=== PATIENT | female | born 1980 | race Caucasian/White ===

== ENCOUNTER 2020-08-07 02:18 | Emergency (ER) | payer OTHER ==
[~2020-08-07] VITALS: Ht 160 cm; Wt 54.4 kg
[~2020-08-07 02:18] MED LIST: ADVIL FLU & BO1 EACH; BIRTH CONTROL; CARISOPRODOL 3350 MG PO; FOLIC ACID; HYDROCODON-ACE1 EAC7 PO; IBUPROFEN 600600 M1 PO; MACROBID 100 M100 M1 PO; PERCOCET 5-3251 EACH PO; PRENATAL COMPL1 EACH; PROMETHAZINE12.5 M1 PO; PYRIDIUM200 MG PO
[2020-08-07] MEDS ORDERED: CELEXA10 MG PO (02:31)
[2020-08-07 02:32] LABS: URINE BILIRUBIN NEGATIVE (Negative); URINE BLOOD 3+ (Negative); URINE CLARITY CLOUDY; URINE COLOR YELLOW; URINE GLUCOSE-RANDOM NEGATIVE (Negative); URINE KETONES NEGATIVE (Negative); URINE PROTEIN 2+ (Negative); URINE SPECIFIC GRAVITY >= 1.030 (1.005-1.030); URINE UROBILINOGEN 0.2 E.U./dl (0.2-1.0)
[2020-08-07 02:33] LABS: URINE LEUKOCYTES-REFLEX 3+ (Negative); URINE NITRITE-REFLEX POSITIVE (Negative)
[2020-08-07 02:39] LABS: SQUAMOUS >10 Many /LPF (0-3); URINE RBC >20 Many /HPF (0-2); URINE WBC-REFLEX >25 Many /HPF (0-5)
[2020-08-07 02:40] LABS: BACTERIA-REFLEX 1-9 Few /HPF (None Seen); CASTS None Seen /LPF (None Seen); CRYSTALS None Seen /LPF (None Seen); MUCUS None Seen strn/LPF (None Seen); WBC CLUMPS Few (None Seen)
[2020-08-07] MEDS ORDERED: MACROBID 100 M100 M1 PO (02:52)
[2020-08-07] MEDS ORDERED: PYRIDIUM200 MG PO (02:52)
[2020-08-07 03:01] VITALS: BP 111/56
== END 2020-08-07 03:02 | disposition home or self-care (01) ==
LOC: M.ERS 02:18
PROVIDERS: Emergency Medicine
DX: N39.0 Urinary tract infection, site not specified (principal); F12.90 Cannabis use, unspecified, uncomplicated; G43.909 Migraine, unspecified, not intractable, without status migrainosus; Z79.899 Other long term (current) drug therapy